=== PATIENT | male | born 1930 | race Caucasian/White ===

== ENCOUNTER → 2017-02-20 13:54 | Outpatient (CLI) | payer MEDICARE, OTHER ==
[2017-02-20 15:39] LABS: ANION GAP 13.9 mmol/L (8-16); BILIRUBIN - TOTAL 0.44 mg/dL (0.2-1.3); CARBON DIOXIDE 31.2 mmol/L (21.0-32.0); CREATININE - SERUM 1.6 mg/dL (0.6-1.3); POTASSIUM - SERUM 4.1 mmol/L (3.5-5.1); PROTEIN - SERUM 6.7 g/dL (6.4-8.2)
== END | disposition home or self-care (01) ==
LOC: D.LAB 13:54
PROVIDERS: Family Medicine
DX: R60.0 Localized edema (principal); R60.9 Edema, unspecified

== ENCOUNTER 2017-06-22 14:58 | Emergency (ER) | payer MEDICARE, OTHER | END 2017-06-22 21:00 | disposition home or self-care (01) | LOC: D.ER 14:58 | DX: K59.00 Constipation, unspecified (principal); T40.4X5A Adverse effect of other synthetic narcotics, initial encounter; T46.6X5A Adverse effect of antihyperlipidemic and antiarteriosclerotic drugs, initial encounter; Y92.019 Unspecified place in single-family (private) house as the place of occurrence of the external cause; I44.0 Atrioventricular block, first degree; I45.10 Unspecified right bundle-branch block; I49.3 Ventricular premature depolarization ==